=== PATIENT | male | born 1970 | race Caucasian/White ===

== ENCOUNTER 2023-11-02 13:10 | Emergency (ER) | payer OTHER, SELFPAY ==
[2023-11-02 13:18] VITALS: BP 146/83; PULSE 58; RESP 18; TEMP 36.3; O2SAT 96; BMI 34.3
--- NOTE | 2023-11-02 13:27 | ED_ITS ---
HPI - General Adult General Time Seen by Provider: 13:27 Date Seen: 11/02/23 Chief complaint: Flank Pain Stated complaint: lower back pain Time Seen by Provider: 11/02/23 13:26 Source: patient Mode of arrival: ambulatory Limitations: no limitations History of Present Illness HPI narrative: Deyvi is a very pleasant 53-year-old gentleman with history of hypertension h yperlipidemia and type 2 diabetes who comes to the emergency room for evaluation of left flank pain. Patient notes to a slight extent he noticed this on night October 29 but had no pain on the or . He was up at his cabin in [facility] and noted he was sleeping on a mattress that probably isn't as good as the 1 he has at home. Today he had increasing left flank pain that he rated a 7/10. It was waxing and waning, worsened by walking. It was not associated with nausea vomiting dysuria hematuria or blood in his stool. He notes he has not taken any medications at this point. He notes that the pain is improved slightly since he has arrived. Patient denies history of abdominal surgeries. Notes family history of kidney stones in his father. He has not had any fever or chills. Patient notes no unusual rash in the flank. He cannot recall any specific moment of injury while he was up [place]. No pain into the legs or into the genitals. Related Data Home Medications Medication Instructions Recorded Confirmed amlodipine 5 mg tablet 5 mg PO DAILY 11/02/23 11/02/23 atenolol 25 mg tablet 25 mg PO DAILY 11/02/23 11/02/23 atorvastatin 40 mg tablet 40 mg PO DAILY 11/02/23 11/02/23 chlorthalidone 25 mg tablet 25 mg PO DAILY 11/02/23 11/02/23 lisinopril 40 mg tablet 40 mg PO DAILY 11/02/23 11/02/23 metformin 500 mg tablet,extended 500 mg PO BID 11/02/23 11/02/23 release 24 hr Allergies Allergy/AdvReac Type Severity Reaction Status Date / Time No Known Drug Allergies Allergy Verified 11/02/23 13:18 Review of Systems Status of ROS: Reports: 10 or more systems reviewed and unremarkable except as noted in History and below Const: Denies: fever or chills Eyes: Denies: change in vision ENMT: Denies: difficulty swallowing Cardio: Denies: chest pain or shortness of breath with exertion Resp: Denies: shortness of breath or cough GI: Denies: abdominal pain, nausea, vomiting, diarrhea, constipation, difficulty swallowing or blood in stool : Denies: painful urination, urinary frequency, urinary urgency, blood in urine or genital pain Musculo: Reports: back pain (Left flank); Denies: extremity pain Integ/Breast: Denies: rash Exam Narrative: Exam Narrative: Alert and oriented. Nontoxic in appearance. Head is atraumatic normocephalic. Neck is supple. Heart with regular rate and rhythm and lungs are clear bilaterally. Examination of the back shows that he has multiple areas of re dness or associated with hair follicles. No blistering is noted. This is bilateral. Palpation over the flank yields no tenderness. However percussion in the left flank does increase tenderness. No mass palpated on the abdomen. No evidence of erythema or ecchymosis. Patient does have increased pain with hip extension or any movement that increases muscular involvement. Const: Vital Signs, click to edit/add: Vital Signs - 24 hr 11/02/23 13:18 Temperature 97.4 F L Pulse Rate [Pulse Oximeter] 58 L Respiratory Rate 18 Blood Pressure [Ri ght Upper Arm] 146/83 H Pulse Oximetry 96 Oxygen Delivery Me thod Room Air Documenting provider has reviewed patient's vital signs: yes Course Course ED Course: Differential diagnosis includes but is not limited to renal colic, retroperitoneal bleed, pyelonephritis, musculoskeletal strain, early shingles, diverticulitis. At this time patient has had waxing and waning pain and is describing what I would often find with kidney stones. At this time will do urinalysis. Patient is not in need of pain medications at this time as he states that the pain is decreasing. Reevaluation(s) Reevaluation #1: I do tell patient that his urinalysis is without evidence of red blood cells or infection. He feels that the pain is improved so much that we do talk about watchful waiting at this time. He has no fever chills vomiting. His vital signs are reassuring with no evidence of tachycardia or hypotension to suggest worsening infectious process or bleeding issue. Vital Signs Vital signs: Initial Vital Signs Temperature 97.4 F L 11/02/23 13:18 Temperature Source Temporal Artery Scan 11/02/23 13:18 Pulse Rate 58 L 11/02/23 13:18 Respiratory Rate 18 11/02/23 13:18 Blood Pressure 146/83 H 11/02/23 13:18 Blood Pressure Mean 104 11/02/23 13:18 Pulse Oximetry 96 11/02/23 13:18 Oxygen Delivery Method Room Air 11/02/23 13:18 Vital Signs Temperature 97.4 F L 11/02/23 13:18 Pulse Rate 58 L 11/02/23 13:18 Respiratory Rate 18 11/02/23 13:18 Blood Pressure 146/83 H 11/02/23 13:18 Pulse Oximetry 96 11/02/23 13:18 Oxygen Delivery Method Room Air 11/02/23 13:18 Temperature 97.4 F L 11/02/23 13:18 Pulse Rate 58 L 11/02/23 13:18 Respiratory Rate 18 11/02/23 13:18 Blood Pressure 146/83 H 11/02/23 13:18 Pulse Oximetry 96 11/02/23 13:18 Oxygen Delivery Method Room Air 11/02/23 13:18 Medical Decision Making MDM Narrative Medical decision making narrative: 1. Left flank pain-no evidence of hematuria or infection on urinalysis. I do give patient the option of further workup verses watching at this time. Because patient was feeling so much better will discharge him home where he will continue to monitor his symptoms. Recommend returning for fever, worsening pain, blood in urine or stool. He is in agreement with this. 2. Disposition-home. Return for increasing pain, vomiting and as needed. If patient returns would suggest abdominal CT with contrast. Lab Data Lab results reviewed: Yes I reviewed the patient's lab results Labs: Lab Results 11/02/23 Range/Units 14:00 Urine Color Yellow (Yellow) Urine Appearance Clear (Clear) Urine pH 6.0 (5.0-8.5) Ur Specific [place] 1.025 (1.000-1.030) Urine Protein Negative (Negative) Urine Glucose (UA) Negative (Negative) Urine Ketones Negative (Negative) Urine Blood Negative (Negative) Urine Nitrite Negative (Negative) Urine Bilirubin Negative (Negative) Urine Urobilinogen 0.2 (0.2-1.0) Ur Leukocyte Esterase Negative (Negative) Urine RBC 0-2 (0-2) Urine WBC 0-2 (0-5) Ur Squamous Epith Cells Few (None-Few) Urine Bacteria Few A (None) Urine Mucus Few A (None) Discharge Plan Discharge Clinical Impression: Acute left flank pain Patient Disposition: Home, Self-Care Condition: Improved Additional Instructions: Continue to monitor for blood in stool or in urine. Return to the emergency room if you have increasing pain, onset of fever, vomiting and as needed. Activity Level: No Restrictions Discharge Diet: Regular Prescriptions: No Action atorvastatin 40 mg tablet 40 mg PO DAILY atenolol 25 mg tablet 25 mg PO DAILY chlorthalidone 25 mg tablet 25 mg PO DAILY amlodipine 5 mg tablet 5 mg PO DAILY lisinopril 40 mg tablet 40 mg PO DAILY metformin 500 mg tablet extended release 24 hr 500 mg PO BID Follow Up/Referrals: Eze Wise MD [Primary Care Provider] - Stand Alone Forms: [facility] Info Instructions
[2023-11-02 14:13] LABS: Appearance Urine Clear (Clear); Bilirubin Urine Negative (Negative); Blood Urine Negative (Negative); Color Urine Yellow (Yellow); Glucose Urine Negative (Negative); Ketones Urine Negative (Negative); Leukocyte Esterase Urine Negative (Negative); Nitrite Urine Negative (Negative); Protein Urine Negative (Negative); Specific Gravity Urine 1.025 (1.000-1.030); Urobilinogen Urine 0.2 (0.2-1.0)
[2023-11-02 14:34] LABS: Bacteria Urine Few; RBC Urine 0-2 (0-2); Squamous Epithelial Cell Urine Few (None-Few); WBC Urine 0-2 (0-5)
[2023-11-02 14:35] LABS: Mucus Urine Few
== END 2023-11-02 15:02 | disposition home or self-care (01) ==
PROVIDERS: Emergency Provider Family Medicine; PCP Family Medicine
DX: R10.9 Unspecified abdominal pain (principal)
CPT/HCPCS: 81001; 87086; 99283; 99284